=== PATIENT | male | born 1940 | race African-American/Black ===

== ENCOUNTER 2019-02-15 10:27 | Inpatient (IN) | payer BC, OTHER ==
[2019-02-15] VITALS: BP 154/82
[~2019-02-15] VITALS: Ht 175.3 cm; Wt 86.2 kg
[~2019-02-15 10:27] MED LIST: ACET-2178 PO; ACYC200C PO; ALLO100T PO; AMLO5TAB88 PO; ASA5EC PO; CALC0.5C10 PO; HYDR-4001 PO; METO5TAB86 PO; ONDA4TAB5 PO; TAMS0.4C31 PO
[2019-02-15 11:51] LABS: HEMATOCRIT. 41.1 % (42.0-52.0); HEMOGLOBIN. 13.8 g/dL (14.0-18.0); MEAN CORPUSCULAR HEMOGLOBIN 31.9 pg (28.0-32.0); MEAN CORPUSCULAR VOLUME 95.2 fL (80.0-94.0); MEAN PLATELET VOLUME 8.6 fl (7.4-10.4); PLATELET 240 x1000/uL (130-400); RED BLOOD CELL COUNT 4.32 mill/uL (4.7-6.1); RED CELL DISTRIBUTION WIDTH 16.1 % (11.6-14.6)
[2019-02-15 11:58] LABS: CHLORIDE 111 mEq/L (98-107)
[2019-02-15 12:13] LABS: D-DIMER 17.24 mg/L FEU (<0.50); INR 1.1; PARTIAL THROMBOPLASTIN TIME 30.2 sec (23.4-31.0); PROTHROMBIN TIME 10.9 sec (9.6-11.0)
[2019-02-15 12:37] LABS: PLATELET ESTIMATE NORMAL
[2019-02-15] MEDS ORDERED: SODIUM CHLORIDE 0.9% 1000ML BAG (SEPSIS BOLUS) IV ONE (13:15)
[2019-02-15] MEDS ORDERED: LEVOFLOXACIN 750MG PREMIX 150 ML IV ONE (13:15)
[2019-02-15] MEDS ORDERED: ASPIRIN 325MG EC TABLET PO ONE (13:45)
[2019-02-15] MEDS ORDERED: IOHEXOL-350 100 ML BOTTLE ONE (14:24)
[2019-02-15] MEDS ORDERED: ENOXAPARIN 100MG/ML SYR SUBCUT ONE (14:45)
[2019-02-15 17:30] VITALS: BP 173/87
[2019-02-15] MEDS ORDERED: IPRATROPIUM/ALBUTEROL 0.5-3(2.5)MG/3ML NEB HHN PRN (19:30)
[2019-02-15] MEDS: IPRATROPIUM/ALBUTEROL 0.5-3(2.5)MG/3ML NEB HHN SCH (19:57)
[2019-02-15 20:00] VITALS: BP 173/89
[2019-02-15] MEDS: ENOXAPARIN 100MG/ML SYR SUBCUT SCH (23:09)
[2019-02-15] MEDS ORDERED: CLONIDINE 0.1MG TABLET PO PRN (23:30)
[2019-02-15] MEDS ORDERED: ONDANSETRON HCL 4MG/2ML INJ IV PRN (23:30)
[2019-02-15] MEDS ORDERED: IPRATROPIUM/ALBUTEROL 0.5-3(2.5)MG/3ML NEB INH PRN (23:30)
[2019-02-15] MEDS ORDERED: MAGNESIUM/ALUMINUM HYDROXIDE/SIMETHICONE 30ML UDC PO PRN (23:30)
[2019-02-15] MEDS: TAMSULOSIN HCL 0.4MG SR CAPSULE PO SCH (23:46)
[2019-02-15] MEDS: THIAMINE HCL 100MG TABLET PO SCH (23:46)
[2019-02-15] MEDS: AMLODIPINE 10MG TABLET PO SCH (23:47)
[2019-02-15] MEDS: LISINOPRIL 10MG TABLET PO SCH (23:47)
[2019-02-16] VITALS (7 sets, daily range): BP systolic 104–154; BP diastolic 58–82
[2019-02-16] MEDS: IPRATROPIUM/ALBUTEROL 0.5-3(2.5)MG/3ML NEB HHN SCH ×6 (00:58→21:15)
[2019-02-16] MEDS: HYDROCODONE/ACETAMINOPHEN 5/325MG TABLET PO PRN ×2 (06:00→18:07)
[2019-02-16 06:04] LABS: HEMATOCRIT. 38.1 % (42.0-52.0); HEMOGLOBIN. 12.7 g/dL (14.0-18.0); MEAN CORPUSCULAR HEMOGLOBIN 32.1 pg (28.0-32.0); MEAN CORPUSCULAR VOLUME 95.9 fL (80.0-94.0); MEAN PLATELET VOLUME 9.2 fl (7.4-10.4); PLATELET 229 x1000/uL (130-400); RED BLOOD CELL COUNT 3.97 mill/uL (4.7-6.1)
[2019-02-16 07:57] LABS: CHLORIDE 115 mEq/L (98-107)
[2019-02-16 08:06] LABS: PHOSPHORUS 1.8 mg/dL (2.5-4.9)
[2019-02-16 08:08] LABS: CREATINE KINASE 54 IU/L (39-308)
[2019-02-16 08:14] LABS: CREATINE KINASE MB FRACTION 1.7 ng/mL (0.5-3.6)
[2019-02-16] MEDS: AMLODIPINE 10MG TABLET PO SCH (09:00)
[2019-02-16] MEDS ORDERED: ASPIRIN 81MG EC TABLET PO SCH (09:00)
[2019-02-16] MEDS: LISINOPRIL 10MG TABLET PO SCH (09:00)
[2019-02-16] MEDS: ENOXAPARIN 100MG/ML SYR SUBCUT SCH ×2 (09:15→21:39)
[2019-02-16] MEDS: THIAMINE HCL 100MG TABLET PO SCH (09:15)
[2019-02-16] MEDS: ASPIRIN 81MG TABLET PO SCH (09:16)
[2019-02-16] MEDS: FOLIC ACID 1MG TABLET PO SCH (09:16)
[2019-02-16] MEDS: TAMSULOSIN HCL 0.4MG SR CAPSULE PO SCH (09:17)
[2019-02-16 11:11] LABS: PLATELET ESTIMATE NORMAL
[2019-02-16] MEDS: POTASSIUM-SODIUM PHOSPHATE POWDER PACKET PO SCH (17:30)
[2019-02-16] MEDS ORDERED: NA PHOS,M-B/NA PHOS,DI-BA ENEMA 118ML PR PRN (20:15)
[2019-02-16] MEDS: DOCUSATE SODIUM 100MG CAPSULE PO SCH (21:36)
[2019-02-16] MEDS: LACTULOSE 20G/30ML UDC PO SCH (21:36)
[2019-02-16] MEDS: CEFTRIAXONE 1 G PREMIX 50 ML IV SCH (21:37)
[2019-02-16] MEDS: FAMOTIDINE 20MG/2ML VIAL IV SCH (22:40)
[2019-02-16] MEDS: AZITHROMYCIN 500 MG in DEXT 5% WATER 250 ML IV SCH (22:41)
[2019-02-17] VITALS (83 sets, daily range): BP systolic 57–183; BP diastolic 28–102
[2019-02-17] MEDS: DEXAMETHASONE 4MG/ML 1ML VIAL IV SCH ×5 (00:26→23:32)
[2019-02-17 00:33] LABS: BG BASE EXCESS -5.8 mmol/L (-2.0-2.0); BG CARBOXYHEMOGLOBIN 0.8 % (0.5-1.5); BG DEOXYHEMOGLOBIN 2.8 % (0.0-5.0); BG FRACTION INSPIRED OXYGEN 32; BG HCO3 ACT 19.1 mmol/L (22.0-26.0); BG METHEMOGLOBIN 0.1 % (0.0-1.5); BG OXYGEN SATURATION 97.2 % (92.0-98.5); BG OXYHEMOGLOBIN 96.3 % (94.0-97.0); BG PCO2 35.7 mmHg (35.0-45.0); BG PH 7.347 (7.350-7.450); BG SAMPLE SITE LEFT RADIAL; BG TOTAL HEMOGLOBIN 12.8 g/dL (12.0-18.0); BG VENT MODE NASAL CANNULA
[2019-02-17] MEDS ORDERED: DEXTROSE 50% WATER 50ML SYRINGE IV PRN (00:45)
[2019-02-17] MEDS: IPRATROPIUM/ALBUTEROL 0.5-3(2.5)MG/3ML NEB HHN SCH ×3 (01:37→20:29)
[2019-02-17 05:04] LABS: HEMATOCRIT. 38.9 % (42.0-52.0); HEMOGLOBIN. 13.2 g/dL (14.0-18.0); MEAN CORPUSCULAR HEMOGLOBIN 32.4 pg (28.0-32.0); MEAN PLATELET VOLUME 9.3 fl (7.4-10.4); PLATELET 273 x1000/uL (130-400); RED BLOOD CELL COUNT 4.05 mill/uL (4.7-6.1); RED CELL DISTRIBUTION WIDTH 15.7 % (11.6-14.6)
[2019-02-17] MEDS: LACTULOSE 20G/30ML UDC PO SCH ×3 (05:50→21:57)
[2019-02-17] MEDS: BLOOD SUGAR DIAGNOSTIC STRIP TEST SCH ×4 (05:50→20:33)
[2019-02-17] MEDS: INSULIN LISPRO 100 UNITS/ML SUBCUT SCH ×4 (05:51→20:33)
[2019-02-17 07:50] LABS: PLATELET ESTIMATE NORMAL
[2019-02-17 08:25] LABS: CHLORIDE 114 mEq/L (98-107)
[2019-02-17] MEDS: TAMSULOSIN HCL 0.4MG SR CAPSULE PO SCH (09:00)
[2019-02-17] MEDS: THIAMINE HCL 100MG TABLET PO SCH (09:00)
[2019-02-17] MEDS: DOCUSATE SODIUM 100MG CAPSULE PO SCH ×2 (09:00→18:41)
[2019-02-17] MEDS: ASPIRIN 81MG TABLET PO SCH (09:00)
[2019-02-17] MEDS: AMLODIPINE 10MG TABLET PO SCH (09:00)
[2019-02-17] MEDS: FOLIC ACID 1MG TABLET PO SCH (09:00)
[2019-02-17] MEDS: ENOXAPARIN 100MG/ML SYR SUBCUT SCH ×2 (09:00→20:33)
[2019-02-17] MEDS: LISINOPRIL 10MG TABLET PO SCH (09:00)
[2019-02-17] MEDS: FAMOTIDINE 20MG/2ML VIAL IV SCH ×2 (09:00→20:33)
[2019-02-17] MEDS: POTASSIUM-SODIUM PHOSPHATE POWDER PACKET PO SCH ×2 (09:00→18:41)
[2019-02-17] MEDS ORDERED: NOREPINEPHRINE 16 MG in DEXT 5% WATER 484 ML IV PRN (11:15)
[2019-02-17 11:16] LABS: BG BASE EXCESS -11.5 mmol/L (-2.0-2.0); BG CARBOXYHEMOGLOBIN 0.7 % (0.5-1.5); BG DEOXYHEMOGLOBIN 1.2 % (0.0-5.0); BG FRACTION INSPIRED OXYGEN 100; BG HCO3 ACT 20.6 mmol/L (22.0-26.0); BG METHEMOGLOBIN 0.4 % (0.0-1.5); BG OXYGEN SATURATION 98.8 % (92.0-98.5); BG OXYHEMOGLOBIN 97.7 % (94.0-97.0); BG PCO2 80.9 mmHg (35.0-45.0); BG PH 7.023 (7.350-7.450); BG PO2 229.4 mmHg (75.0-100.0); BG SAMPLE SITE RIGHT BRACHIAL; BG TOTAL HEMOGLOBIN 12.9 g/dL (12.0-18.0); BG VENT MODE MASK - NRB
[2019-02-17] MEDS ORDERED: SUCCINYLCHOLINE CHLORIDE 200MG/10ML IV ONE (12:00)
[2019-02-17] MEDS ORDERED: ETOMIDATE 2MG/ML 10ML VIAL IV ONE (12:00)
[2019-02-17] MEDS ORDERED: LIDOCAINE HCL 1% 20ML VIAL (Pyxis) INJ ONE (12:02)
[2019-02-17] MEDS ORDERED: MIDAZOLAM HCL 50 MG in DEXTROSE 5% WATER 40 ML IV ONE (12:30)
[2019-02-17] MEDS ORDERED: MIDAZOLAM HCL 2 MG/2 ML VIAL IV ONE (12:30)
[2019-02-17 12:54] LABS: BG BASE EXCESS -8.3 mmol/L (-2.0-2.0); BG CARBOXYHEMOGLOBIN 0.6 % (0.5-1.5); BG DEOXYHEMOGLOBIN 1.6 % (0.0-5.0); BG FRACTION INSPIRED OXYGEN 90; BG HCO3 ACT 19.8 mmol/L (22.0-26.0); BG METHEMOGLOBIN 0.3 % (0.0-1.5); BG OXYGEN SATURATION 98.4 % (92.0-98.5); BG OXYHEMOGLOBIN 97.5 % (94.0-97.0); BG PH 7.206 (7.350-7.450); BG PO2 150.4 mmHg (75.0-100.0); BG SAMPLE SITE RIGHT BRACHIAL; BG TIDAL VOLUME(mL) 500 mL; BG TOTAL HEMOGLOBIN 12.8 g/dL (12.0-18.0); BG VENT MODE VENT - A/C; BG VENT RATE 16 set
[2019-02-17] MEDS ORDERED: LIDOCAINE HCL/PF 1% 2ML VIAL ONE (13:10)
[2019-02-17] MEDS ORDERED: PROPOFOL 10MG/ML 100ML 100 ML IV STA (14:02)
[2019-02-17] MEDS: LORAZEPAM 2MG/ML CPJ IV PRN (14:09)
[2019-02-17] MEDS ORDERED: VANCOMYCIN 1,750 MG in DEXT 5% WATER 500 ML IV NR (15:00)
[2019-02-17] MEDS ORDERED: PROPOFOL 10MG/ML 100ML 100 ML IV PRN (16:00)
[2019-02-17 16:44] LABS: BG BASE EXCESS -8.2 mmol/L (-2.0-2.0); BG CARBOXYHEMOGLOBIN 0.9 % (0.5-1.5); BG DEOXYHEMOGLOBIN 1.1 % (0.0-5.0); BG FRACTION INSPIRED OXYGEN 80; BG HCO3 ACT 18.2 mmol/L (22.0-26.0); BG METHEMOGLOBIN 0.3 % (0.0-1.5); BG OXYGEN SATURATION 98.9 % (92.0-98.5); BG OXYHEMOGLOBIN 97.7 % (94.0-97.0); BG PCO2 40.3 mmHg (35.0-45.0); BG PH 7.272 (7.350-7.450); BG PO2 186.3 mmHg (75.0-100.0); BG SAMPLE SITE RIGHT BRACHIAL; BG TIDAL VOLUME(mL) 500 mL; BG TOTAL HEMOGLOBIN 14.3 g/dL (12.0-18.0); BG VENT MODE VENT - A/C; BG VENT RATE 16 set
[2019-02-17] MEDS: IPRATROPIUM/ALBUTEROL 0.5-3(2.5)MG/3ML NEB HHN PRN ×2 (17:08→21:15)
[2019-02-17] MEDS: AZITHROMYCIN 500 MG in DEXT 5% WATER 250 ML IV SCH (20:33)
[2019-02-17] MEDS: CEFTRIAXONE 1 G PREMIX 50 ML IV SCH (20:33)
[2019-02-17 23:37] LABS: CREATINE KINASE MB FRACTION 1.5 ng/mL (0.5-3.6)
[2019-02-18] VITALS (89 sets, daily range): BP systolic 65–179; BP diastolic 38–100
[2019-02-18] MEDS: IPRATROPIUM/ALBUTEROL 0.5-3(2.5)MG/3ML NEB HHN SCH ×4 (00:52→20:10)
[2019-02-18] MEDS: VANCOMYCIN 1 G PREMIX 200 ML IV SCH ×2 (03:00→16:15)
[2019-02-18 05:38] LABS: HEMATOCRIT. 37.7 % (42.0-52.0); HEMOGLOBIN. 12.7 g/dL (14.0-18.0); MEAN CORPUSCULAR HEMOGLOBIN 32.2 pg (28.0-32.0); MEAN CORPUSCULAR VOLUME 95.8 fL (80.0-94.0); MEAN PLATELET VOLUME 9.4 fl (7.4-10.4); PLATELET 257 x1000/uL (130-400); RED BLOOD CELL COUNT 3.94 mill/uL (4.7-6.1)
[2019-02-18] MEDS: INSULIN LISPRO 100 UNITS/ML SUBCUT SCH ×4 (05:45→20:55)
[2019-02-18] MEDS: DEXAMETHASONE 4MG/ML 1ML VIAL IV SCH ×4 (05:45→23:44)
[2019-02-18] MEDS: BLOOD SUGAR DIAGNOSTIC STRIP TEST SCH ×4 (05:45→20:55)
[2019-02-18] MEDS: LACTULOSE 20G/30ML UDC PO SCH ×2 (05:45→14:00)
[2019-02-18 06:44] LABS: CHLORIDE 113 mEq/L (98-107)
[2019-02-18 06:58] LABS: PHOSPHORUS 1.7 mg/dL (2.5-4.9)
[2019-02-18 08:27] LABS: PLATELET ESTIMATE NORMAL
[2019-02-18] MEDS: DOCUSATE SODIUM 100MG CAPSULE PO SCH (09:00)
[2019-02-18 09:17] LABS: BG BASE EXCESS -1.6 mmol/L (-2.0-2.0); BG CARBOXYHEMOGLOBIN 0.1 % (0.5-1.5); BG DEOXYHEMOGLOBIN 0.9 % (0.0-5.0); BG FRACTION INSPIRED OXYGEN 60; BG HCO3 ACT 22.1 mmol/L (22.0-26.0); BG METHEMOGLOBIN 0.3 % (0.0-1.5); BG OXYGEN SATURATION 99.1 % (92.0-98.5); BG OXYHEMOGLOBIN 98.7 % (94.0-97.0); BG PCO2 33.9 mmHg (35.0-45.0); BG PH 7.432 (7.350-7.450); BG PO2 224.7 mmHg (75.0-100.0); BG SAMPLE SITE RIGHT BRACHIAL; BG TIDAL VOLUME(mL) 500 mL; BG TOTAL HEMOGLOBIN 11.9 g/dL (12.0-18.0); BG VENT MODE VENT - A/C; BG VENT RATE 18 set
[2019-02-18] MEDS: ENOXAPARIN 100MG/ML SYR SUBCUT SCH (09:38)
[2019-02-18] MEDS: FAMOTIDINE 20MG/2ML VIAL IV SCH ×2 (09:39→20:56)
[2019-02-18] MEDS: POTASSIUM-SODIUM PHOSPHATE POWDER PACKET PO SCH ×2 (09:39→16:14)
[2019-02-18] MEDS: ASPIRIN 81MG TABLET PO SCH (09:40)
[2019-02-18] MEDS ORDERED: PROPOFOL 10MG/ML 100ML 100 ML IV PRN (12:30)
[2019-02-18] MEDS ORDERED: POTASSIUM PHOS,M-BASIC-D-BASIC 20 MMOL in DEXT 5% WATER 243.3333 ML IV NR (13:00)
[2019-02-18] MEDS: MIDODRINE HCL 5MG TABLET NG SCH ×2 (16:14→17:42)
[2019-02-18] MEDS: PROPOFOL 10MG/ML 100ML 100 ML IV PRN ×2 (18:18→22:01)
[2019-02-18] MEDS: CEFTRIAXONE 1 G PREMIX 50 ML IV SCH (19:40)
[2019-02-18] MEDS: AZITHROMYCIN 500 MG in DEXT 5% WATER 250 ML IV SCH (20:56)
[2019-02-18] MEDS ORDERED: HEPARIN 80 UNITS/KG BOLUS IV NR (21:00)
[2019-02-18] MEDS: HEPARIN 25,000 UNITS PREMIX 500 ML IV SCH (21:04)
[2019-02-18] MEDS: LORAZEPAM 2MG/ML CPJ IV PRN (22:40)
[2019-02-19] VITALS (95 sets, daily range): BP systolic 99–179; BP diastolic 57–101
[2019-02-19] MEDS ORDERED: HEPARIN BOLUS PRN aPTT 37-44 IV
[2019-02-19] MEDS ORDERED: HEPARIN BOLUS PRN aPTT <36 IV
[2019-02-19] MEDS: IPRATROPIUM/ALBUTEROL 0.5-3(2.5)MG/3ML NEB HHN SCH ×3 (01:55→13:21)
[2019-02-19] MEDS: VANCOMYCIN 1 G PREMIX 200 ML IV SCH (03:11)
[2019-02-19] MEDS: PROPOFOL 10MG/ML 100ML 100 ML IV PRN ×3 (03:51→13:32)
[2019-02-19] MEDS: DEXAMETHASONE 4MG/ML 1ML VIAL IV SCH ×4 (05:49→23:27)
[2019-02-19] MEDS: BLOOD SUGAR DIAGNOSTIC STRIP TEST SCH ×4 (05:50→21:46)
[2019-02-19] MEDS: INSULIN LISPRO 100 UNITS/ML SUBCUT SCH ×4 (05:50→21:46)
[2019-02-19 08:34] LABS: BG BASE EXCESS -3.8 mmol/L (-2.0-2.0); BG CARBOXYHEMOGLOBIN 0.2 % (0.5-1.5); BG DEOXYHEMOGLOBIN 1.6 % (0.0-5.0); BG FRACTION INSPIRED OXYGEN 40; BG HCO3 ACT 19.8 mmol/L (22.0-26.0); BG METHEMOGLOBIN 0.1 % (0.0-1.5); BG OXYGEN SATURATION 98.4 % (92.0-98.5); BG OXYHEMOGLOBIN 98.1 % (94.0-97.0); BG PCO2 31.6 mmHg (35.0-45.0); BG PH 7.415 (7.350-7.450); BG PO2 138.3 mmHg (75.0-100.0); BG SAMPLE SITE RIGHT BRACHIAL; BG TIDAL VOLUME(mL) 500 mL; BG VENT MODE VENT - A/C; BG VENT RATE 18 set
[2019-02-19] MEDS: POTASSIUM-SODIUM PHOSPHATE POWDER PACKET PO SCH ×2 (09:15→17:40)
[2019-02-19] MEDS: MIDODRINE HCL 5MG TABLET NG SCH ×3 (09:15→17:40)
[2019-02-19] MEDS: FAMOTIDINE 20MG/2ML VIAL IV SCH ×2 (09:16→21:08)
[2019-02-19] MEDS: HEPARIN 25,000 UNITS PREMIX 500 ML IV SCH ×3 (12:18→21:03)
[2019-02-19] MEDS: CEFTRIAXONE 1 G PREMIX 50 ML IV SCH (21:08)
[2019-02-19] MEDS: AZITHROMYCIN 500 MG in DEXT 5% WATER 250 ML IV SCH (22:20)
[2019-02-19] MEDS ORDERED: PROPOFOL 10MG/ML 100ML 100 ML IV PRN (22:40)
[2019-02-19] MEDS: PROPOFOL 10MG/ML 100ML 100 ML IV SCH (23:39)
[2019-02-20] VITALS (99 sets, daily range): BP systolic 98–181; BP diastolic 59–104
[2019-02-20] MEDS: VANCOMYCIN 750 MG PREMIX 150 ML IV SCH ×2 (00:37→15:14)
[2019-02-20] MEDS: IPRATROPIUM/ALBUTEROL 0.5-3(2.5)MG/3ML NEB HHN SCH ×3 (02:09→20:40)
[2019-02-20] MEDS: PROPOFOL 10MG/ML 100ML 100 ML IV SCH ×3 (02:44→09:35)
[2019-02-20] MEDS: DEXAMETHASONE 4MG/ML 1ML VIAL IV SCH ×3 (06:29→18:29)
[2019-02-20 07:19] LABS: BG BASE EXCESS -4.6 mmol/L (-2.0-2.0); BG CARBOXYHEMOGLOBIN 0.7 % (0.5-1.5); BG HCO3 ACT 19.8 mmol/L (22.0-26.0); BG METHEMOGLOBIN 0.2 % (0.0-1.5); BG OXYHEMOGLOBIN 97.1 % (94.0-97.0); BG PCO2 34.5 mmHg (35.0-45.0); BG PH 7.376 (7.350-7.450); BG PO2 125.4 mmHg (75.0-100.0); BG SAMPLE SITE RIGHT RADIAL; BG TIDAL VOLUME(mL) 500 mL; BG VENT MODE VENT - A/C; BG VENT RATE 16 set
[2019-02-20] MEDS: INSULIN LISPRO 100 UNITS/ML SUBCUT SCH ×4 (07:43→20:20)
[2019-02-20] MEDS: BLOOD SUGAR DIAGNOSTIC STRIP TEST SCH ×4 (07:43→20:20)
[2019-02-20] MEDS: FAMOTIDINE 20MG/2ML VIAL IV SCH ×2 (09:34→20:24)
[2019-02-20] MEDS: POTASSIUM-SODIUM PHOSPHATE POWDER PACKET PO SCH ×2 (09:34→18:30)
[2019-02-20 09:54] LABS: HEMATOCRIT. 36.4 % (42.0-52.0); HEMOGLOBIN. 12.2 g/dL (14.0-18.0); MEAN CORPUSCULAR VOLUME 95.2 fL (80.0-94.0); MEAN PLATELET VOLUME 9.3 fl (7.4-10.4); PLATELET 251 x1000/uL (130-400); RED BLOOD CELL COUNT 3.82 mill/uL (4.7-6.1); RED CELL DISTRIBUTION WIDTH 16.1 % (11.6-14.6)
[2019-02-20 09:59] LABS: CHLORIDE 111 mEq/L (98-107)
[2019-02-20] MEDS ORDERED: FUROSEMIDE 40MG/4ML VIAL IVP NR (10:45)
[2019-02-20] MEDS: LORAZEPAM 2MG/ML CPJ IV PRN ×3 (10:52→18:29)
[2019-02-20 11:44] LABS: NUCLEATED RED BLOOD CELLS 1 /100 WBC
[2019-02-20 11:45] LABS: PLATELET ESTIMATE NORMAL
[2019-02-20] MEDS: ENOXAPARIN 100MG/ML SYR SUBCUT SCH (18:30)
[2019-02-20] MEDS: CEFTRIAXONE 1 G PREMIX 50 ML IV SCH (19:28)
[2019-02-20] MEDS: AZITHROMYCIN 500 MG in DEXT 5% WATER 250 ML IV SCH (20:24)
[2019-02-20] MEDS: MORPHINE SULFATE 2 MG/ML CPJ (NOT FOR IM USE) IV PRN (21:42)
[2019-02-21] VITALS (90 sets, daily range): BP systolic 91–189; BP diastolic 50–107
[2019-02-21] MEDS: DEXAMETHASONE 4MG/ML 1ML VIAL IV SCH ×5 (00:09→23:37)
[2019-02-21] MEDS: VANCOMYCIN 750 MG PREMIX 150 ML IV SCH (00:09)
[2019-02-21] MEDS: LORAZEPAM 2MG/ML CPJ IV PRN ×4 (00:54→22:27)
[2019-02-21] MEDS: IPRATROPIUM/ALBUTEROL 0.5-3(2.5)MG/3ML NEB HHN SCH ×5 (02:06→21:29)
[2019-02-21] MEDS: BLOOD SUGAR DIAGNOSTIC STRIP TEST SCH ×4 (05:46→20:25)
[2019-02-21] MEDS: ENOXAPARIN 100MG/ML SYR SUBCUT SCH ×2 (06:24→17:14)
[2019-02-21] MEDS: INSULIN LISPRO 100 UNITS/ML SUBCUT SCH ×4 (06:25→20:26)
[2019-02-21] MEDS: POTASSIUM-SODIUM PHOSPHATE POWDER PACKET PO SCH ×2 (08:41→17:17)
[2019-02-21] MEDS: FUROSEMIDE 20MG/2ML VIAL IVP SCH (08:41)
[2019-02-21] MEDS: FAMOTIDINE 20MG/2ML VIAL IV SCH ×2 (08:41→20:44)
[2019-02-21 08:45] LABS: BG CARBOXYHEMOGLOBIN 0.9 % (0.5-1.5); BG DEOXYHEMOGLOBIN 4.3 % (0.0-5.0); BG FRACTION INSPIRED OXYGEN 30; BG HCO3 ACT 22.7 mmol/L (22.0-26.0); BG OXYGEN SATURATION 95.7 % (92.0-98.5); BG OXYHEMOGLOBIN 94.8 % (94.0-97.0); BG PCO2 35.2 mmHg (35.0-45.0); BG PH 7.428 (7.350-7.450); BG PO2 80.5 mmHg (75.0-100.0); BG SAMPLE SITE RIGHT RADIAL; BG TIDAL VOLUME(mL) 500 mL; BG TOTAL HEMOGLOBIN 14.1 g/dL (12.0-18.0); BG VENT MODE VENT - A/C; BG VENT RATE 16 set
[2019-02-21] MEDS: MORPHINE SULFATE 2 MG/ML CPJ (NOT FOR IM USE) IV PRN ×3 (09:29→20:45)
[2019-02-21] MEDS: QUETIAPINE FUMARATE 25MG TABLET PO SCH (14:15)
[2019-02-21] MEDS: CEFTRIAXONE 1 G PREMIX 50 ML IV SCH (19:15)
[2019-02-21] MEDS: AZITHROMYCIN 500 MG in DEXT 5% WATER 250 ML IV SCH (20:44)
[2019-02-22] VITALS (89 sets, daily range): BP systolic 82–195; BP diastolic 52–110
[2019-02-22] MEDS: MORPHINE SULFATE 2 MG/ML CPJ (NOT FOR IM USE) IV PRN ×3 (01:25→13:39)
[2019-02-22] MEDS: IPRATROPIUM/ALBUTEROL 0.5-3(2.5)MG/3ML NEB HHN SCH ×4 (02:28→20:47)
[2019-02-22] MEDS: LORAZEPAM 2MG/ML CPJ IV PRN ×2 (03:17→07:48)
[2019-02-22 04:18] LABS: KAPPA LT CHAINS FREE SERUM 1.3 mg/L (3.3-19.4); KAPPA/LAMBDA RATIO 0.42 (0.26-1.65); LAMBDA LT CHAINS FREE SERUM 3.1 mg/L (5.7-26.3)
[2019-02-22] MEDS: INSULIN LISPRO 100 UNITS/ML SUBCUT SCH ×4 (05:52→21:00)
[2019-02-22] MEDS: BLOOD SUGAR DIAGNOSTIC STRIP TEST SCH ×4 (05:52→21:26)
[2019-02-22] MEDS: DEXAMETHASONE 4MG/ML 1ML VIAL IV SCH (05:53)
[2019-02-22] MEDS: ENOXAPARIN 100MG/ML SYR SUBCUT SCH ×2 (05:53→17:00)
[2019-02-22 05:59] LABS: HEMATOCRIT. 38.7 % (42.0-52.0); HEMOGLOBIN. 12.9 g/dL (14.0-18.0); MEAN CORPUSCULAR VOLUME 95.9 fL (80.0-94.0); MEAN PLATELET VOLUME 9.7 fl (7.4-10.4); PLATELET 228 x1000/uL (130-400); RED BLOOD CELL COUNT 4.04 mill/uL (4.7-6.1)
[2019-02-22 06:18] LABS: CHLORIDE 107 mEq/L (98-107)
[2019-02-22] MEDS: FAMOTIDINE 20MG/2ML VIAL IV SCH ×2 (08:12→21:26)
[2019-02-22] MEDS: POTASSIUM-SODIUM PHOSPHATE POWDER PACKET PO SCH ×2 (08:12→17:00)
[2019-02-22] MEDS: FUROSEMIDE 20MG/2ML VIAL IVP SCH (08:12)
[2019-02-22] MEDS: QUETIAPINE FUMARATE 25MG TABLET PO SCH (08:12)
[2019-02-22 10:31] LABS: PLATELET ESTIMATE NORMAL
[2019-02-22 11:11] LABS: BG BASE EXCESS 1.9 mmol/L (-2.0-2.0); BG CARBOXYHEMOGLOBIN 1.7 % (0.5-1.5); BG DEOXYHEMOGLOBIN 4.2 % (0.0-5.0); BG FRACTION INSPIRED OXYGEN 30; BG HCO3 ACT 24.8 mmol/L (22.0-26.0); BG OXYGEN SATURATION 95.7 % (92.0-98.5); BG OXYHEMOGLOBIN 94.1 % (94.0-97.0); BG PCO2 33.7 mmHg (35.0-45.0); BG PH 7.485 (7.350-7.450); BG PO2 74.6 mmHg (75.0-100.0); BG SAMPLE SITE RIGHT BRACHIAL; BG TIDAL VOLUME(mL) 500 mL; BG TOTAL HEMOGLOBIN 13.7 g/dL (12.0-18.0); BG VENT MODE VENT - A/C; BG VENT RATE 16 set
[2019-02-22] MEDS: VANCOMYCIN 1 G PREMIX 200 ML IV SCH (12:01)
[2019-02-22] MEDS ORDERED: ROCURONIUM BROMIDE 10MG/ML VIAL 5ML IV ONE ×2 (19:38→19:42)
[2019-02-22] MEDS ORDERED: CEFAZOLIN SODIUM 1000MG/VIAL ONE (19:57)
[2019-02-22] MEDS: CEFTRIAXONE 1 G PREMIX 50 ML IV SCH (20:00)
[2019-02-22] MEDS: AZITHROMYCIN 500 MG in DEXT 5% WATER 250 ML IV SCH (21:26)
[2019-02-23] VITALS (74 sets, daily range): BP systolic 83–155; BP diastolic 46–91
[2019-02-23] MEDS: IPRATROPIUM/ALBUTEROL 0.5-3(2.5)MG/3ML NEB HHN SCH ×4 (02:11→21:46)
[2019-02-23 04:14] LABS: KAPPA LT CHAINS FREE SERUM 15.6 mg/L (3.3-19.4); KAPPA/LAMBDA RATIO 1.32 (0.26-1.65); LAMBDA LT CHAINS FREE SERUM 11.8 mg/L (5.7-26.3)
[2019-02-23] MEDS: ENOXAPARIN 100MG/ML SYR SUBCUT SCH ×3 (05:00→23:18)
[2019-02-23] MEDS: POTASSIUM-SODIUM PHOSPHATE POWDER PACKET PO SCH ×2 (09:22→17:00)
[2019-02-23] MEDS: QUETIAPINE FUMARATE 25MG TABLET PO SCH (09:22)
[2019-02-23] MEDS: FUROSEMIDE 20MG/2ML VIAL IVP SCH (09:22)
[2019-02-23] MEDS: FAMOTIDINE 20MG/2ML VIAL IV SCH ×2 (09:22→21:43)
[2019-02-23] MEDS: BLOOD SUGAR DIAGNOSTIC STRIP TEST SCH ×3 (11:30→21:31)
[2019-02-23] MEDS ORDERED: MIDAZOLAM HCL 5 MG/5 ML VIAL ONE (11:42)
[2019-02-23] MEDS ORDERED: FENTANYL CITRATE/PF 50MCG/ML 2ML VIAL ONE (11:43)
[2019-02-23] MEDS: INSULIN LISPRO 100 UNITS/ML SUBCUT SCH ×3 (12:00→21:00)
[2019-02-23 12:35] LABS: INR 1.1; PARTIAL THROMBOPLASTIN TIME 32.8 sec (23.4-31.0); PROTHROMBIN TIME 11.3 sec (9.6-11.0)
[2019-02-23] MEDS ORDERED: MIDAZOLAM HCL 5 MG/5 ML VIAL IV ONE (12:58)
[2019-02-23] MEDS ORDERED: BACTERIOSTATIC SODIUM CHLORIDE 0.9% 30ML VIAL IJ ONE (13:43)
[2019-02-23] MEDS: VANCOMYCIN 1 G PREMIX 200 ML IV SCH (14:02)
[2019-02-23] MEDS: METOCLOPRAMIDE HCL 10MG/2ML VIAL IV SCH ×2 (19:01→23:22)
[2019-02-23] MEDS: CEFTRIAXONE 1 G PREMIX 50 ML IV SCH (23:18)
[2019-02-23] MEDS: MORPHINE SULFATE 2 MG/ML CPJ (NOT FOR IM USE) IV PRN (23:28)
[2019-02-24] VITALS (15 sets, daily range): BP systolic 90–180; BP diastolic 48–88
[2019-02-24] MEDS ORDERED: DILTIAZEM HCL 5MG/ML 5ML VIAL IV NR (00:45)
[2019-02-24] MEDS: IPRATROPIUM/ALBUTEROL 0.5-3(2.5)MG/3ML NEB HHN SCH ×4 (01:11→21:11)
[2019-02-24] MEDS: MORPHINE SULFATE 2 MG/ML CPJ (NOT FOR IM USE) IV PRN (03:17)
[2019-02-24] MEDS: LORAZEPAM 2MG/ML CPJ IV PRN ×2 (03:54→14:43)
[2019-02-24] MEDS: METOCLOPRAMIDE HCL 10MG/2ML VIAL IV SCH ×4 (05:59→22:17)
[2019-02-24 07:40] LABS: BG BASE EXCESS -0.1 mmol/L (-2.0-2.0); BG CARBOXYHEMOGLOBIN 0.6 % (0.5-1.5); BG DEOXYHEMOGLOBIN 4.9 % (0.0-5.0); BG HCO3 ACT 20.2 mmol/L (22.0-26.0); BG METHEMOGLOBIN 0.2 % (0.0-1.5); BG OXYGEN SATURATION 95.1 % (92.0-98.5); BG OXYHEMOGLOBIN 94.3 % (94.0-97.0); BG PCO2 22.7 mmHg (35.0-45.0); BG PH 7.567 (7.350-7.450); BG PO2 69.9 mmHg (75.0-100.0); BG SAMPLE SITE RIGHT RADIAL; BG TIDAL VOLUME(mL) 500 mL; BG TOTAL HEMOGLOBIN 13.4 g/dL (12.0-18.0); BG VENT MODE VENT - A/C; BG VENT RATE 16 set
[2019-02-24] MEDS: INSULIN LISPRO 100 UNITS/ML SUBCUT SCH ×4 (07:40→21:00)
[2019-02-24] MEDS: BLOOD SUGAR DIAGNOSTIC STRIP TEST SCH ×4 (07:40→21:00)
[2019-02-24] MEDS: QUETIAPINE FUMARATE 25MG TABLET PO SCH (08:41)
[2019-02-24] MEDS: FAMOTIDINE 20MG/2ML VIAL IV SCH ×2 (08:41→22:16)
[2019-02-24] MEDS: FUROSEMIDE 20MG/2ML VIAL IVP SCH (08:41)
[2019-02-24] MEDS: POTASSIUM-SODIUM PHOSPHATE POWDER PACKET PO SCH ×2 (08:41→16:31)
[2019-02-24] MEDS: ACETAMINOPHEN 650MG/20.3ML UDC PO PRN ×2 (10:48→16:33)
[2019-02-24] MEDS: ACETAMINOPHEN 650MG SUPP PR PRN ×2 (12:51→19:11)
[2019-02-24] MEDS ORDERED: MORPHINE SULFATE 2 MG/ML CPJ (NOT FOR IM USE) IV PRN ×2 (15:15→18:30)
[2019-02-24] MEDS ORDERED: SODIUM CHLORIDE 0.9% 500 ML IV ONE (15:15)
[2019-02-24] MEDS ORDERED: VANCOMYCIN 1 G PREMIX 200 ML IV SCH (16:00)
[2019-02-24] MEDS: MEROPENEM 1,000 MG in SODIUM CHLORIDE 0.9% 100 ML IV SCH (16:21)
[2019-02-24] MEDS: ENOXAPARIN 100MG/ML SYR SUBCUT SCH (16:32)
[2019-02-24 19:57] LABS: HEMOGLOBIN. 12.6 g/dL (14.0-18.0); MEAN CORPUSCULAR HEMOGLOBIN 31.3 pg (28.0-32.0); MEAN CORPUSCULAR VOLUME 96.8 fL (80.0-94.0); MEAN PLATELET VOLUME 10.6 fl (7.4-10.4); PLATELET 208 x1000/uL (130-400); RED BLOOD CELL COUNT 4.03 mill/uL (4.7-6.1); RED CELL DISTRIBUTION WIDTH 16.4 % (11.6-14.6)
[2019-02-24 20:00] LABS: CHLORIDE 110 mEq/L (98-107)
[2019-02-24 20:46] LABS: PLATELET ESTIMATE NORMAL
[2019-02-25] VITALS (62 sets, daily range): BP systolic 62–143; BP diastolic 47–81
[2019-02-25] MEDS: IPRATROPIUM/ALBUTEROL 0.5-3(2.5)MG/3ML NEB HHN SCH ×3 (00:49→21:17)
[2019-02-25] MEDS: MEROPENEM 1,000 MG in SODIUM CHLORIDE 0.9% 100 ML IV SCH (02:55)
[2019-02-25] MEDS: METOCLOPRAMIDE HCL 10MG/2ML VIAL IV SCH ×4 (06:14→23:46)
[2019-02-25] MEDS: ENOXAPARIN 100MG/ML SYR SUBCUT SCH (06:14)
[2019-02-25] MEDS: BLOOD SUGAR DIAGNOSTIC STRIP TEST SCH ×2 (07:38→11:47)
[2019-02-25] MEDS: INSULIN LISPRO 100 UNITS/ML SUBCUT SCH ×2 (07:41→11:48)
[2019-02-25] MEDS: POTASSIUM-SODIUM PHOSPHATE POWDER PACKET PO SCH ×2 (08:32→17:00)
[2019-02-25] MEDS: QUETIAPINE FUMARATE 25MG TABLET PO SCH (08:51)
[2019-02-25] MEDS: FUROSEMIDE 20MG/2ML VIAL IVP SCH ×2 (08:51→09:00)
[2019-02-25] MEDS: FAMOTIDINE 20MG/2ML VIAL IV SCH (08:51)
[2019-02-25] MEDS: LORAZEPAM 2MG/ML CPJ IV PRN ×2 (08:51→10:27)
[2019-02-25 09:09] LABS: HEMATOCRIT. 37.2 % (42.0-52.0); HEMOGLOBIN. 12.3 g/dL (14.0-18.0); MEAN CORPUSCULAR HEMOGLOBIN 31.7 pg (28.0-32.0); MEAN PLATELET VOLUME 10.2 fl (7.4-10.4); PLATELET 177 x1000/uL (130-400); RED BLOOD CELL COUNT 3.87 mill/uL (4.7-6.1); RED CELL DISTRIBUTION WIDTH 16.8 % (11.6-14.6)
[2019-02-25 10:01] LABS: BG BASE EXCESS -3.1 mmol/L (-2.0-2.0); BG CARBOXYHEMOGLOBIN 0.4 % (0.5-1.5); BG METHEMOGLOBIN 0.3 % (0.0-1.5); BG OXYHEMOGLOBIN 97.3 % (94.0-97.0); BG PCO2 26.2 mmHg (35.0-45.0); BG PH 7.479 (7.350-7.450); BG PO2 110.5 mmHg (75.0-100.0); BG SAMPLE SITE RIGHT RADIAL; BG TIDAL VOLUME(mL) 500 mL; BG TOTAL HEMOGLOBIN 12.2 g/dL (12.0-18.0); BG VENT MODE VENT - A/C; BG VENT RATE 16 set
[2019-02-25] MEDS ORDERED: SODIUM CHLORIDE 0.9% 1,000 ML IV ONE ×2 (10:30→12:00)
[2019-02-25] MEDS ORDERED: NOREPINEPHRINE 16 MG in DEXT 5% WATER 484 ML IV PRN (10:30)
[2019-02-25] MEDS: MEROPENEM 1000MG in NORMAL SALINE 100ML IV SCH ×2 (10:51→20:22)
[2019-02-25] MEDS: SODIUM CHLORIDE 0.9% 1,000 ML IV SCH (10:52)
[2019-02-25] MEDS: MIDODRINE HCL 5MG TABLET PO SCH ×2 (13:11→17:53)
[2019-02-25] MEDS ORDERED: LIDOCAINE HCL/PF 1% 2ML VIAL ONE (13:26)
[2019-02-25] MEDS: VANCOMYCIN 1 G PREMIX 200 ML IV SCH (13:32)
[2019-02-25 17:36] LABS: CLARITY URINE TURBID (CLEAR); COLOR URINE YELLOW (YELLOW); KETONES URINE TRACE (NEGATIVE); LEUKOCYTE ESTERASE URINE TRACE (NEGATIVE); NITRITE URINE NEGATIVE (NEGATIVE); OCCULT BLOOD URINE 3+ (NEGATIVE); PROTEIN URINE 2+ (NEGATIVE); SPECIFIC GRAVITY URINE 1.017 (1.005-1.030)
[2019-02-25 21:06] LABS: PLATELET ESTIMATE NORMAL
[2019-02-25] MEDS: ACETAMINOPHEN 650MG/20.3ML UDC PO PRN (22:01)
[2019-02-26] VITALS (58 sets, daily range): BP systolic 76–144; BP diastolic 48–80
[2019-02-26] MEDS: IPRATROPIUM/ALBUTEROL 0.5-3(2.5)MG/3ML NEB HHN SCH ×4 (02:05→20:25)
[2019-02-26] MEDS: SODIUM CHLORIDE 0.9% 1,000 ML IV SCH (06:05)
[2019-02-26] MEDS: METOCLOPRAMIDE HCL 10MG/2ML VIAL IV SCH ×5 (06:05→23:40)
[2019-02-26 06:23] LABS: HEMATOCRIT. 33.9 % (42.0-52.0); HEMOGLOBIN. 11.3 g/dL (14.0-18.0); MEAN CORPUSCULAR VOLUME 95.7 fL (80.0-94.0); MEAN PLATELET VOLUME 10.6 fl (7.4-10.4); PLATELET 148 x1000/uL (130-400); RED BLOOD CELL COUNT 3.54 mill/uL (4.7-6.1); RED CELL DISTRIBUTION WIDTH 16.7 % (11.6-14.6)
[2019-02-26 07:42] LABS: PLATELET ESTIMATE NORMAL
[2019-02-26] MEDS: FAMOTIDINE 20MG/2ML VIAL IV SCH (09:44)
[2019-02-26] MEDS: MIDODRINE HCL 5MG TABLET PO SCH ×3 (09:45→16:58)
[2019-02-26] MEDS ORDERED: CALCIUM GLUCONATE 1,000 MG in DEXT 5% WATER 90 ML IV NR (09:45)
[2019-02-26] MEDS: POTASSIUM-SODIUM PHOSPHATE POWDER PACKET PO SCH ×2 (09:45→16:57)
[2019-02-26] MEDS: ENOXAPARIN 100MG/ML SYR SUBCUT SCH (09:46)
[2019-02-26] MEDS: VANCOMYCIN 1 G PREMIX 200 ML IV SCH (13:27)
[2019-02-26] MEDS: MEROPENEM 1000MG in NORMAL SALINE 100ML IV SCH (21:00)
[2019-02-27] VITALS (12 sets, daily range): BP systolic 106–178; BP diastolic 60–99
[2019-02-27] MEDS: IPRATROPIUM/ALBUTEROL 0.5-3(2.5)MG/3ML NEB HHN SCH ×4 (02:59→17:02)
[2019-02-27] MEDS: METOCLOPRAMIDE HCL 10MG/2ML VIAL IV SCH ×3 (05:12→17:52)
[2019-02-27 06:43] LABS: HEMATOCRIT. 36.5 % (42.0-52.0); HEMOGLOBIN. 12.2 g/dL (14.0-18.0); MEAN CORPUSCULAR HEMOGLOBIN 32.1 pg (28.0-32.0); MEAN CORPUSCULAR VOLUME 95.9 fL (80.0-94.0); MEAN PLATELET VOLUME 10.7 fl (7.4-10.4); PLATELET 155 x1000/uL (130-400); RED BLOOD CELL COUNT 3.81 mill/uL (4.7-6.1); RED CELL DISTRIBUTION WIDTH 16.7 % (11.6-14.6)
[2019-02-27] MEDS: POTASSIUM-SODIUM PHOSPHATE POWDER PACKET PO SCH ×2 (08:22→17:52)
[2019-02-27] MEDS: FAMOTIDINE 20MG/2ML VIAL IV SCH (08:22)
[2019-02-27] MEDS: ENOXAPARIN 100MG/ML SYR SUBCUT SCH (08:22)
[2019-02-27] MEDS: MIDODRINE HCL 5MG TABLET PO SCH ×3 (08:23→17:52)
[2019-02-27] MEDS: MEROPENEM 1000MG in NORMAL SALINE 100ML IV SCH (10:22)
[2019-02-27] MEDS ORDERED: CALCIUM GLUCONATE 1,000 MG in DEXT 5% WATER 90 ML IV NR (11:00)
[2019-02-27] MEDS: SODIUM CHLORIDE 0.9% 1,000 ML IV SCH (11:37)
[2019-02-27 16:17] LABS: PLATELET ESTIMATE NORMAL
[2019-02-28] MEDS ORDERED: METOCLOPRAMIDE HCL 10MG/2ML VIAL IV SCH
[2019-02-28] MEDS ORDERED: VANCOMYCIN 1250MG in DEXTROSE 5% WATER 250ML IV SCH (06:00)
== END 2019-02-27 20:09 | DRG 3 ==
LOC: ER 10:27 → 7WST 14:31 → CANRESERV 15:55 → ENRESERV 15:55 → ER 16:44 → MICUSO 02-16 22:50 → 5EST 02-23 17:45 → MICUSO 02-25 10:00 → 5EST 02-26 14:05
PROVIDERS: ADMIT Internal Medicine Nephrology; ATTEND Internal Medicine Nephrology
PROC: 5A1955Z Respiratory Ventilation, Greater than 96 Consecutive Hours (ICD-10-PCS; principal; 2019-02-17)
PROC: 0BH18EZ Insertion of Endotracheal Airway into Trachea, Via Natural or Artificial Opening Endoscopic (ICD-10-PCS; 2019-02-17)
PROC: 0B21XEZ Change Endotracheal Airway in Trachea, External Approach (ICD-10-PCS; 2019-02-17)
PROC: 02HV33Z Insertion of Infusion Device into Superior Vena Cava, Percutaneous Approach (ICD-10-PCS; 2019-02-17)
PROC: B548ZZA Ultrasonography of Superior Vena Cava, Guidance (ICD-10-PCS; 2019-02-17)
PROC: 4A00X4Z Measurement of Central Nervous Electrical Activity, External Approach (ICD-10-PCS; 2019-02-20)
PROC: 0B110F4 Bypass Trachea to Cutaneous with Tracheostomy Device, Open Approach (ICD-10-PCS; 2019-02-22)
PROC: 0GBJ0ZZ Excision of Thyroid Gland Isthmus, Open Approach (ICD-10-PCS; 2019-02-22)
PROC: 0DB68ZX Excision of Stomach, Via Natural or Artificial Opening Endoscopic, Diagnostic (ICD-10-PCS; 2019-02-23)
PROC: 0DH63UZ Insertion of Feeding Device into Stomach, Percutaneous Approach (ICD-10-PCS; 2019-02-23)
DX: A41.9 Sepsis, unspecified organism (principal); I26.99 Other pulmonary embolism without acute cor pulmonale; G82.50 Quadriplegia, unspecified; J96.00 Acute respiratory failure, unspecified whether with hypoxia or hypercapnia; N18.6 End stage renal disease; R65.21 Severe sepsis with septic shock; G93.41 Metabolic encephalopathy; J69.0 Pneumonitis due to inhalation of food and vomit; N17.0 Acute kidney failure with tubular necrosis; E44.0 Moderate protein-calorie malnutrition; I12.0 Hypertensive chronic kidney disease with stage 5 chronic kidney disease or end stage renal disease; C90.01 Multiple myeloma in remission; M48.54XA Collapsed vertebra, not elsewhere classified, thoracic region, initial encounter for fracture; N39.0 Urinary tract infection, site not specified; Q61.3 Polycystic kidney, unspecified; E11.22 Type 2 diabetes mellitus with diabetic chronic kidney disease; R29.6 Repeated falls; Z96.653 Presence of artificial knee joint, bilateral; G90.8 Other disorders of autonomic nervous system; Z96.643 Presence of artificial hip joint, bilateral; R62.7 Adult failure to thrive; M81.0 Age-related osteoporosis without current pathological fracture; E78.5 Hyperlipidemia, unspecified; K29.70 Gastritis, unspecified, without bleeding; E78.00 Pure hypercholesterolemia, unspecified; M48.02 Spinal stenosis, cervical region; E78.1 Pure hyperglyceridemia; Z16.12 Extended spectrum beta lactamase (ESBL) resistance; B96.20 Unspecified Escherichia coli [E. coli] as the cause of diseases classified elsewhere; R13.10 Dysphagia, unspecified; Z98.49 Cataract extraction status, unspecified eye; Z68.28 Body mass index [BMI] 28.0-28.9, adult; Z79.899 Other long term (current) drug therapy; Z79.82 Long term (current) use of aspirin; Z86.73 Personal history of transient ischemic attack (TIA), and cerebral infarction without residual deficits; Z91.81 History of falling
CPT/HCPCS: 31500; 36415; 36569; 36600; 70551; 71045; 71275; 72141; 74018; 76937; 80048; 80202; 82040; 82375; 82550; 82553; 82784; 82805; 82962; 83605; 83735; 83880; 83883; 84100; 84134; 84145; 84478; 84484; 85379; 86334; 87070; 87077; 87186; 88305; 88312; 88313; 93005; 93308; 93970; 94003; 94640; 96374; 96375; 99285; C1725; J0330; J0456; J0610; J0690; J0696; J1100; J1644; J1650; J1815; J1940; J1956; J2060; J2185; J2250; J2270; J2704; J2765; J3010; J3370; J3490; J7030; J7040; J7050; J7060; J7620; Q9967; A4315